=== PATIENT | female | born 1980 | race Hispanic/Latino ===

== ENCOUNTER 2022-04-11 14:28 | Observation (INO) | payer OTHER ==
[2022-04-11 15:10] LABS: SARS-CoV-2 Antigen Rapid Res Negative (Negative)
--- OUTSIDE RECORDS SUMMARY | 2022-04-11 15:56 | XMS REPORT | Continuity of Care Document ---
:1980 Author Organization [facility] t Address [address] [place] [address] Care Team Providers Name Role Phone ROXANNE MACDONALD Primary Care Physician Unavailable BYRON SILVER Attending Clinician Unavailable GC_SWHATBIC_Cone_S Attending Clinician Unavailable MARIANGEL JACKSON Attending Clinician Unavailable MARIANGEL JACKSON Attending Clinician Unavailable Yanet Leo MD Attending Clinician Roxanne Macdonald MD Attending Clinician [phone] YANET LEO Attending Clinician Unavailable Doctor Unassigned, [place] Attending Clinician Unavailable ROXANNE MACDONALD Attending Clinician Unavailable RAUL SEPULVEDA Attending Clinician Unavailable Chasidy King Attending Clinician CHASIDY CHRISTINA Attending Clinician Unavailable Raul Sepulveda MD Attending Clinician 2, [facility] Attending Clinician Unavailable Rosangela Chaudhry A Attending Clinician Peter Shankar OD Attending Clinician PETER SHANKAR Attending Clinician Unavailable CHEL BOWENS Attending Clinician Unavailable Khalida Carmona Attending Clinician Provider, [facility] Attending Clinician Unavailable Pob, [facility] Main Attending Clinician Unavailable Lab, [facility]c Fam Pob I Attending Clinician Unavailable Adela Mueller Attending Clinician Chel Bowens RD Attending Clinician BYRON SILVER Admitting Clinician Unavailable GC_SWHATBIC_Cone_S Admitting Clinician Unavailable YANET LEO Admitting Clinician Unavailable Payers Payer Name Policy Type Policy Number Effective Date Expiration Date Joe forde [facility] [id number] 2016 CHOICE 00:00:00 [facility] [id number] 2021 [place] OF [place] 00:00:00 Problems Condition Condition Condition Status Onset Resolution Last Treating Co mments Source Name Details Category Date Date Treatment Clinician Date Vitamin D Vitamin D Disease Active Uni vers deficiency deficiency 3-17 it y of 00:00: [place] [facility] Abdominal Abdominal Disease Active 2019-04 Overview: Univers wall mass wall mass 0-27 Formattin i ty of of left of left 00:00: g of this [facility] [place] 00 note Medical quadrant quadrant might be Bran ch different from the original. Added automatic ally from request for surgery [id number] Constipati Constipati Disease Active U nivers on, on, 12-20 ity of unspecifie [place]if[place] Medical constipati constipati Br anch on type on type Anemia, Anemia, Disease Active Univers unspecifie unspecifie 8-25 it y of d type d type 00:00: [place] [facility] Diabetes Diabetes Disease Active Unive rs mellitus mellitus 1-23 ity of type II, type II, 00:00: [place] non non 00 Medical insulin insulin Branch dependent dependent Mixed Mixed Disease Active Univers hyperlipid hyperlipid 1-23 it y of emia emia 00:00: [place] [facility] Essential Essential Disease Active Uni vers hypertensi hypertensi 1-23 it y of on on 00:00: [place] [facility] Left sided Left sided Disease Active U nivers abdominal abdominal 1-19 ity of pain pain 00:00: [place] [facility] Fatigue, Fatigue, Disease Active Unive rs unspecifie unspecifie 1-19 it y of d type d type 00:00: [place] [facility] Right Right Disease Active Univers ovarian ovarian 7-18 ity of cyst cyst 00:00: [place] [facility] Menorrhagi Menorrhagi Disease Active U nivers a with a with 7-18 ity of regular regular 00:00: [place] cycle cycle Medical Branch Obesity Obesity Disease Active Univers (BMI (BMI 6-21 ity of 30-39.9) 30-39.9) 00:00: [place] 00 Medical [place] Allergies, Adverse Reactions, Alerts Allergy Allergy Status Severity Reaction(s) Onset Inactive Treating Comm ents Source Name Type Date Date Clinician NO KNOWN Drug Active Univers ALLERGIE Class ity of S [facility] Social History Social Habit Start Date Stop Date Quantity Comments Source History SDOH University o f Alcohol Frequency [place] [facility] History SDOH University o f Alcohol Std [place] [facility] Drinks Branch History SDOH University o f Alcohol Binge [place] [facility] Alcohol intake 2020-10-23 2020-10-23 Current drinker Unive rsity of 00:00:00 00:00:00 of alcohol [place] [facility] (finding) [place] Alcohol Comment 2016-11-12 2016-11-12 Rare Universit y of 00:00:00 00:00:00 [facility] Tobacco use and 2016-08-19 2016-08-19 Smokeless tobacco Un iversity of exposure 00:00:00 00:00:00 non-user [facility] Sex Assigned At [birth year] Universit y of 00:00:00 00:00:00 [facility] Smoking Status Start Date Stop Date Source Never smoked tobacco [facility] Medications Ordered Filled Start Stop Current Ordering Indication Dosage Frequency Signature Comments Components Source Medication Medication Date Date Medication? Clinician (SIG) Name Name blood sugar 2021-04 Yes [id number] Check Univers diagnostic - sugars 2 ity o f strip 00:00: times a [place] 00 day. Brand Medical per Branch insurance. ACCU-CHEK 0 Yes [id number] ONE - Uni vers GUIDE TEST 01-17 TWICE A ity of STRIPS 00:00: DAY [place] strip 00 Medical Branch ACCU-CHEK 0 Yes [id number] ONE - Uni vers GUIDE TEST 01-17 TWICE A ity of STRIPS 00:00: DAY [place] strip 00 Medical Branch ACCU-CHEK 2021-0 2021- No [id number] ONE - Un juancarlos GUIDE TEST 01-17-03 TWICE A ity o f STRIPS 00:00: 00:00 DAY [place] strip 00 :00 Medical Branch ACCU-CHEK 2020-04 Yes USE TO Univer s FASTCLIX 1-19 MEASURE ity of LANCET DRUM 00:00: BLOOD [place] Misc 00 SUGAR TWO Medical TIMES A Branch DAY ACCU-CHEK 2020-04 Yes USE TO Univer s FASTCLIX 1-19 MEASURE ity of LANCET DRUM 00:00: BLOOD [place] Misc 00 SUGAR TWO Medical TIMES A Branch DAY ACCU-CHEK 2020-04 Yes USE TO Univer s FASTCLIX 1-19 MEASURE ity of LANCET DRUM 00:00: BLOOD [place] Misc 00 SUGAR TWO Medical TIMES A Branch DAY ACCU-CHEK 2020-04 Yes USE TO Univer s FASTCLIX 1-19 MEASURE ity of LANCET DRUM 00:00: BLOOD [place] Mis 00 SUGAR TWO Medical TIMES A Branch DAY semaglutide Yes [id number] .25mg inject Univers (OZEMPIC) 9-03 0.25 mg ity of 0.25 mg or 00:00: [place] 0.5 mg(2 00 skin Medical mg/1.5 mL) weekly. Branch PnIj semaglutide Yes [id number] .25mg inject Univers (OZEMPIC) 9-03 0.25 mg ity of 0.25 mg or 00:00: [place] the [place] 0.5 mg(2 00 skin Medical mg/1.5 mL) weekly. Branch PnIj semaglutide Yes [id number] .25mg inject Univers (OZEMPIC) 9-03 0.25 mg ity of 0.25 mg or 00:00: [place] the [place] 0.5 mg(2 00 skin Medical mg/1.5 mL) weekly. Branch PnIj semaglutide Yes [id number] .25mg inject Univers (OZEMPIC) 9-03 0.25 mg ity of 0.25 mg or 00:00: [place] 0.5 mg(2 00 skin Medical mg/1.5 mL) weekly. Branch PnIj fluocinonid Yes [id number] Apply to Univers e 0.05 % 5-25 area(s) 2 ity of cream 00:00: (two) [place] 00 times Medical daily as Branch needed for Rash or Itching. Only use if lesions are raised or itchy. fluocinonid Yes [id number] Apply to Univers e 0.05 % 5-25 area(s) 2 ity of cream 00:00: (two) [place] 00 times Medical daily as Branch needed for Rash or Itching. Only use if lesions are raised or itchy. fluocinonid Yes [id number] Apply to Univers e 0.05 % 5-25 area(s) 2 ity of cream 00:00: (two) [place] 00 times Medical daily as Branch needed for Rash or Itching. Only use if lesions are raised or itchy. fluocinonid Yes [id number] Apply to Univers e 0.05 % 5-25 area(s) 2 ity of cream 00:00: (two) [place] 00 times Medical daily as Branch needed for Rash or Itching. Only use if lesions are raised or itchy. atorvastati Yes [id number] 40mg Take 1 Univers n 40 mg 3-22 tablet by ity of tablet 00:00: mouth at [place] 00 bedtime. Medical Branch atorvastati Yes [id number] 40mg Take 1 Univers n 40 mg 3-22 tablet by ity of tablet 00:00: mouth at [place] 00 bedtime. Medical Branch atorvastati Yes [id number] 40mg Take 1 Univers n 40 mg 3-22 tablet by ity of tablet 00:00: mouth at [place] 00 bedtime. Medical Branch atorvastati Yes [id number] 40mg Take 1 Univers n 40 mg 3-22 tablet by ity of tablet 00:00: mouth at [place] 00 bedtime. Medical Branch cholecalcif Yes [id number] 1000U Take 1 Univers mary ann, 3-18 tablet by ity of vitamin D3, 00:00: mouth [place] (VITAMIN 00 daily. Medical D3) 25 mcg Branch (1,000 unit) tablet metformin Yes [id number] 1000mg Take 2 Univers ER 500 mg 3-18 tablets by ity of 24 hr 00:00: mouth 2 [place] tablet 00 (two) Medical times Branch daily with meals. cholecalcif Yes [id number] 1000U Take 1 Univers mary ann, 3-18 tablet by ity of vitamin D3, 00:00: mouth [place] (VITAMIN 00 daily. Medical D3) 25 mcg Branch (1,000 unit) tablet metformin 0 Yes [id number] 1000mg Take 2 Univers ER 500 mg 3-18 tablets by ity of 24 hr 00:00: mouth 2 [place] tablet 00 (two) Medical times Branch daily with meals. cholecalcif 0 Yes [id number] 1000U Take 1 Univers mary ann, 3-18 tablet by ity of vitamin D3, 00:00: mouth [place] (VITAMIN 00 daily. Medical D3) 25 mcg Branch (1,000 unit) tablet metformin Yes [id number] 1000mg Take 2 Univers ER 500 mg 3-18 tablets by ity of 24 hr 00:00: mouth 2 [place] tablet 00 (two) Medical times Branch daily with meals. cholecalcif 0 Yes [id number] 1000U Take 1 Univers mary ann, 3-18 tablet by ity of vitamin D3, 00:00: mouth [place] (VITAMIN 00 daily. Medical D3) 25 mcg Branch (1,000 unit) tablet metformin Yes [id number] 1000mg Take 2 Univers ER 500 mg 3-18 tablets by ity of 24 hr 00:00: mouth 2 [place] tablet 00 (two) Medical times Branch daily with meals. ACCU-CHEK 0 Yes [id number] USE TO Un juancarlos GUIDE TEST 2-17 MEASURE ity of STRIPS 00:00: BLOOD [place] strip 00 SUGAR TWO Medical TIMES A Branch DAY ACCU-CHEK 2020-0 2022- No [id number] USE TO U nivers GUIDE TEST 2-17 01-17 MEASURE ity o f STRIPS 00:00: 00:00 BLOOD [place] strip 00 :00 SUGAR TWO Medical TIMES A Branch DAY lisinopril 2019-0 Yes [id number] 2.5mg Take 1 Univers 2.5 mg 1-23 tablet by ity of tablet 00:00: mouth [place] 00 daily. Medical Branch Miscellaneo 2020-0 Yes [id number] I10 - [facility] Dispense ity o f Supply Kit 00:00: blood [place] 00 pressure Medical cuff (any Branch brand), take BP at home BID Miscellaneo 2020-0 Yes [id number] E11.9 - Univers [facility] 05-20 Measure ity of Supply Kit 00:00: blood [place] 00 sugar BID. Medical Dispense Branch Accucheck (or alternativ e brand covered by insurance) lancets 28 Yes [id number] E11.9Measu [facility] 05-20 re blood ity o f 00:00: sugar BID [place] [facility] lisinopril 2020-0 Yes [id number] 2.5mg Take 1 Univers 2.5 mg 1-23 tablet by ity of tablet 00:00: mouth [place] 00 daily. Medical Branch Miscellaneo 2020-0 Yes [id number] I10 - U nivAstroloMe [facility] 05-20 Dispense ity o f Supply Kit 00:00: blood [place] 00 pressure Medical cuff (any Branch brand), take BP at home BID Miscellaneo 2019-0 Yes [id number] E11.9 - [facility] 05-20 Measure ity of Supply Kit 00:00: blood [place] 00 sugar BID. Medical Dispense Branch Accucheck (or alternativ e brand covered by insurance) lancets Yes [id number] E11.9Measu [facility] 05-20 re blood ity o f 00:00: sugar BID Medical Branch lisinopril 2020-0 Yes [id number] 2.5mg Take 1 Univers 2.5 mg 1-23 tablet by ity of tablet 00:00: mouth [place] 00 daily. Medical Branch Miscellaneo 2019-0 Yes [id number] I10 - U Augmedix [facility] 05-20 Dispense ity o f Supply Kit 00:00: blood [place] 00 pressure Medical cuff (any Branch brand), take BP at home BID Miscellaneo 2019-0 Yes [id number] E11.9 - [facility] 05-20 Measure ity of Supply Kit 00:00: blood [place] 00 sugar BID. Medical Dispense Branch Accucheck (or alternativ e brand covered by insurance) lancets Yes [id number] E11.9Measu [facility] 05-20 re blood ity o f 00:00: sugar BID Medical Branch lisinopril 2020-0 Yes [id number] 2.5mg Take 1 Univers 2.5 mg 1-23 tablet by ity of tablet 00:00: mouth [place] 00 daily. Medical Branch Miscellaneo 2020-0 Yes [id number] I10 - U Augmedix [facility] 05-20 Dispense ity o f Supply Kit 00:00: blood pressure Medical cuff (any Branch brand), take BP at home BID Miscellaneo 0 Yes [id number] E11.9 - Univers Medical 05-20 Measure ity of Supply Kit 00:00: blood sugar BID. Medical Dispense Branch Accucheck (or alternativ e brand covered by insurance) lancets 28 2019-0 Yes [id number] E11.9Measu Univers gauge Misc 05-20 re blood ity o f 00:00: sugar BID [place] [facility] [place] Immunizations Ordered Filled Immunization Date Status Comments Sourc e Immunization Name Name TDAP 2019-11-[address] [facility] 00:00:00 [facility] TDAP 2019-11-[address] [facility] :00: [facility] TD 2019-11-[address] [facility] 00:00: [facility] 2019-11-[address] [facility] :00:00 [facility] Procedures This patient has no known procedures. Encounters Start End Encounter Admission Attending Care Care Encounter Source Date/Time Date/Time Type Type Clinicians Facility Department ID 2021-02-24 Outpatient NADEEM [facility] [id number] Univers 09:12:42 BYRON [facility] 2021-02-24 [id number] Univers 01:25:59 [facility] 2022-04-02 2022-04-02 Outpatient GC_SWHATBIC PRIV PRIV [id number] [facility] 00:00:00 00:00:00 _[facility]_S [id number] Medica l 2022-03-27 2022-03-27 Outpatient R MARIANGEL JACKSON [facility] B [id number] Univers 13:00:00 13:00:00 MARIANGEL JACKSON [facility] 2022-02-18 2022-02-18 [facility] [id number] Univers 00:00:00 00:00:00 Yanet GOTTI [id number] i [place] [id number] [place] [phone] Ok dical NAL 044 [facility] 2022-01-16 2022-01-16 [facility] [id number] Univers 00:00:00 00:00:00 Yanet GOTTI [id number] i ty of [id number] [phone] [facility] 044 [facility] 2021-12-26 2021-12-26 Telephone [facility] [id number] Univers 00:00:00 00:00:00 Roxanne GOTTI [id number] ity of [id number] [phone] [facility] 231 [facility] 2021-03-15 2021-03-15 [facility] [id number] Univers 00:00:00 00:00:00 Yanet GOTTI [id number] i ty of [id number] [phone] [facility] 044 [facility] 2021-01-04 2021-01-04 Outpatient R [facility] [id number] Univers 10:40:00 10:40:00 YANET [facility] 2021-01-02 2021-01-02 Outpatient R [facility] [id number] Univers 10:40:00 10:40:00 YANET meka [facility] 2021-01-02 2021-01-02 Orders Doctor DRE 1.2.840.114 [id number] Univers 00:00:00 00:00:00 Only Unassigned, MIKY [id number] ity of [place] [facility] [id number] Nikolas as [phone] [address] 2021-01-02 2021-01-02 Telephone [facility] 1.2.840.114 [id number] Univers 00:00:00 00:00:00 Roxanne Gotti [id number] ity of [id number] [place] Profess[place] [phone] [facility] 044 [facility] 2020-12-28 2020-12-28 [facility] 1.2.840.114 [id number] Univers 00:00:00 00:00:00 Roxanne A [place] [id number] ity of [place] [id number] [place] [phone] [facility] 231 [facility] 2020-12-28 2020-12-28 [facility] 1.2.840.114 [id number] Univers 00:00:00 00:00:00 Roxanne A [place] [id number] ity of [place] [id number] [place] [phone] [address] 2020-12-15 2020-12-15 Orders Doctor ERICKSON 1.2.840.114 [id number] Univers 00:00:00 00:00:00 Only Unassigned, MIKY [id number] ity of [place] [facility] [id number] Nikolas as [phone] [address] 2020-12-15 2020-12-15 Orders Doctor DRE 1.2.840.114 [id number] Univers 00:00:00 00:00:00 Only Unassigned, MIKY [id number] ity of [place] [facility] [id number] Nikolas as [phone] [address] 2020-12-14 2020-12-14 Telephone [facility] 1.2.840.114 [id number] Univers 00:00:00 00:00:00 Roxanne A [place] [id number] ity of [place] [id number] [place] [phone] [address] 2020-12-13 2020-12-13 Telephone [facility] 1.2.840.114 [id number] Univers 00:00:00 00:00:00 Roxanne A [place] [id number] ity of [place] [id number] [place] [phone] Ok dical nal 044 [facility] 2020-11-27 2020-11-27 Outpatient R TORRES [facility] [id number] Univers 14:40:00 14:40:00 ROXANNE mcmahan [facility] 2020-11-13 2020-11-13 Outpatient Anthony SEPULVEDA [facility] [id number] Univers 10:30:00 10:30:00 RAUL mcmahan [facility] 2020-11-10 2020-11-10 Outpatient R TORRES [facility] [id number] Univers 10:40:00 10:40:00 ROXANNE [facility] 2020-10-23 2020-10-23 Office [facility] 1.2.840.114 [id number] Univers 14:19:13 15:03:58 Visit Chasidy [place] [id number] [facility] [id number] [phone] Ok dical nal 044 [facility] 2020-10-23 2020-10-23 Outpatient Anthony CHRISTINA [facility] [id number] Univers 13:00:00 13:00:00 CHASIDY pradhan [facility] 2020-10-09 2020-10-09 Outpatient Anthony CHRISTINA [facility] [id number] Univers 09:30:00 09:30:00 CHASIDY pradhan [facility] 2020-09-19 2020-09-19 Office MALI Sepulveda 1.2.840.114 [id number] Univers 10:07:50 11:05:31 Visit Raul Shahid [facility] [id number] ity [facility] [id number] [place] [phone] [address] 2020-09-19 2020-09-19 Outpatient Anthony SEPULVEDA [facility] [id number] Univers 09:45:00 09:45:00 [facility] 2020-09-18 2020-09-18 Office Torres [facility] 1.2.840.114 [id number] Univers 14:26:21 16:10:31 Visit Roxanne Gotti [id number] ity [place] [id number] [phone] Ok dical nal 231 [facility] 2020-09-18 2020-09-18 Outpatient R MACDONALD [facility] [id number] Univers 14:20:00 14:20:00 ROXANNE mcmahan [facility] 2020-07-12 2020-07-12 [place] 2, Adc Lab [facility] 1..840.114 [id number] Univers 13:51:52 14:06:52 Visit Chasidy Christina [id number] ity of [place] [id number] [phone] [facility] 353 [facility] 2020-07-12 2020-07-12 Office [facility] 1..840.114 [id number] Univers 13:23:33 13:49:21 Visit Chasidy [place] [id number] it[place] of [place] [id number] [phone] [facility] 044 [facility] 2020-07-12 2020-07-12 [facility] [id number] Univers 13:00:00 13:00:00 CHASIDY billy o [facility] 2020-06-28 2020-06-28 Outpatient R SANFORD [facility] [id number] Univers 11:00:00 11:00:00 CHASIDY billy o f [facility] 2020-06-26 2020-06-26 Out[facility] [id number] Univers 11:00:00 11:00:00 CHASIDY ity o [facility] 2020-06-08 2020-06-08 [facility] ..840.114 [id number] Univers 00:00:00 00:00:00 Yanet Gotti [id number] i ty [place] [id number] [phone] [facility] 044 [facility] 2020-06-07 2020-06-07 Patient Torres [facility] 1.2.840.114 [id number] Univers 00:00:00 00:00:00 Secure Msg Roxanne [place] [id number] ity of [place] [id number] [phone] [facility] 231 [facility] 2020-06-05 2020-06-05 Telephone Macdonald, [facility] 1.2.840.114 [id number] Univers 00:00:00 00:00:00 Roxanne [place] [id number] it[place] [id number] [phone] [facility] 044 [facility] 2020-04-14 2020-04-14 Outpatient [facility] [id number] Univers 13:00:00 13:00:00 BYRON [facility] 2020-04-14 2020-04-14 Telephone [facility] [id number] Univers 00:00:00 00:00:00 Rosangela Gotti [id number] ity [place] [id number] [phone] [facility] 204 [facility] 2020-03-12 2020-03-12 [facility] 1.2.840.114 [id number] Univers 00:00:00 00:00:00 Management Roxanne Gotti [id number] [place] [id number] [phone] [facility] 231 [facility] 2020-03-03 2020-03-03 Outpatient [facility] [id number] Univers 08:15:00 08:15:00 BYRON [facility] 2020-03-03 2020-03-03 Telephone [facility] [id number] Univers 00:00:00 00:00:00 Rosangela [place] [id number] [place] [id number] [phone] Ok dical nal 204 [facility] 2020-03-03 2020-03-03 Telephone Brie [facility] [id number] Univers 00:00:00 00:00:00 Rosangela Gotti [id number] it[place] [id number] [phone] Ok dical [facility] 204 [facility] 2020-02-25 2020-02-25 Office [facility] 1.2.840.114 [id number] Univers 13:16:18 13:31:18 Visit Peter Valiente MICHELLE [id number] [id number] [place] [phone] [facility] 2020-02-25 2020-02-25 Out[facility] [id number] Univers 13:30:00 13:30:00 PETER mcmahan [facility] 2020-02-24 2020-02-24 [facility] 1.2.840.114 [id number] Univers 10:47:49 12:52:33 Visit Roxanen Gotti [id number] it[place] [id number] [phone] [facility] 231 [facility] 2020-02-24 2020-02-24 Painter Rough 2, Adc Lab [facility] 1.2.840.114 [id number] Univers 11:53:29 12:08:29 Visit Roxanne Macdonald 350.1. 13.10 it[place] [id number] [phone] [facility] 353 [facility] 2020-02-24 2020-02-24 Outpatient R TORRES [facility] [id number] Univers 10:40:00 10:40:00 ROXANNE mcmahan [facility] 2020-02-22 2020-02-22 Prep For [facility] 1.2.840.114 [id number] Univers 00:00:00 00:00:00 Surgery Rosangela [place] [id number] [place] [id number] [phone] Ok dical nal 204 [facility] 2020-02-21 2020-02-21 [facility] [id number] Univers 09:45:00 09:45:00 BYRON itmeka [facility] 2020-02-03 2020-02-03 [facility] [id number] Univers 13:30:00 13:30:00 PETER mcmahan [facility] 2020-01-19 2020-01-19 [facility] [id number] Univers 10:15:00 10:15:00 PETER billmeka [facility] 2020-01-13 2020-01-13 Out[facility] [id number] Univers 11:00:00 11:00:00 CHEL ity [facility] 2020-01-06 2020-01-06 Patient [facility] 1.2.840.114 [id number] Univers 00:00:00 00:00:00 Secure Msg Roxanne Gotti [id number] ity [facility] [id number] [phone] [facility] nal 044 [facility] 2019-12-31 2019-12-31 Outpatient [facility] [id number] Univers 10:30:00 10:30:00 PETER mcmahan [facility] 2019-12-29 2019-12-29 [facility] 1.2.840.114 [id number] Univers 11:00:00 23:59:00 Encounter Roxanne Gotti [id number] ity [facility] [id number] [phone] [facility] [address] 2019-12-29 2019-12-29 [facility] [id number] Univers 00:00:00 00:00:00 ROXANNE mcmahan of [facility] 2019-12-29 2019-12-29 Orders Doctor DRE 1.2.840.114 [id number] Univers 00:00:00 00:00:00 Only Unassigned, MIKY 350.1.13.10 ity of [place] [facility] [id number] Nikolas as [phone] [facility] [address] 2019-12-21 2019-12-21 Office [facility] 1.2.840.114 [id number] Univers 15:41:48 16:25:53 Visit Yanet Gotti 350.1.13.10 i [place].2.[place] [phone] Ok dical nal 044 [facility] 2019-12-21 2019-12-21 Outpatient R [facility] [id number] Univers 15:20:00 15:20:00 YANET itmeka [facility] 2019-12-13 2019-12-13 [facility] 1.2.840.114 [id number] Univers 12:15:00 23:59:00 Encounter Khalida Gotti 350.1.13.10 ity [id number] [phone] [facility] [address] 2019-12-13 2019-12-13 Urgent Provider, [facility] 1.2.840.114 [id number] Univers 11:24:53 16:59:39 Care Khalida Collins 350.1.13.10 ity of [place] 4.2.7.2.686 Nikolas as Professio [phone] Ok dical nal [address] Office Building One 2019-12-13 2019-12-13 Painter Rough Ravin, Gideon [facility] Main [facility] 1.2.8 40.114 [id number] Univers 12:12:13 12:27:13 Visit Khalida Collins 350.1.13.10 it[id number] [phone] Ok dical nal 353 [facility] 2019-12-13 2019-12-13 Outpatient R [facility] [id number] Univers 11:20:00 11:20:00 ity of [facility] 2019-12-13 2019-12-13 [facility] 1.2.840.114 [id number] Univers 00:00:00 00:00:00 Management Roxanne Gotti [id number] [place].2.[place] [phone] [facility] 231 [facility] 2019-12-12 2019-12-12 [facility] 1.2.840.114 [id number] Univers 00:00:00 00:00:00 Roxanne Ramiro DickinsonAnadarko 350.1.13.10 ity [place]2.7.2.[place] [phone] [facility] 231 [facility] 2019-12-06 2019-12-06 [facility] 1.2.840.114 [id number] Univers 09:30:00 23:59:00 Encounter Roxanne Gotti 350.1.13.10 ity [place] 4[place]2.7.2.686 [place] [phone] [address] 2019-12-06 2019-12-06 Painter Rough Gideon Alicia Lab Main [facility] 1.2.8 40.114 [id number] Univers 11:08:32 11:23:32 Visit Roxanne Macdonald 350.1. 13.10 ity [place] 4[place]2.7.2.[place] [phone] [facility] 353 [facility] 2019-12-06 2019-12-06 Outpatient R TORRES [facility] [id number] Univers 00:00:00 00:00:00 ROXANNE mcmahan [facility] 2019-11-24 2019-11-24 Outpatient R NGUYEN [facility] [id number] Univers 08:30:00 08:30:00 YANET mcmahan [facility] 2019-11-23 2019-11-23 [facility] 1.2.840.114 [id number] Univers 09:35:47 10:57:00 Visit Roxanne Gotti 350.1.13.10 it[place]2.7.2.[place] [phone] [facility] 231 [facility] 2019-11-23 2019-11-23 Out[facility] [id number] Univers 10:20:00 10:20:00 ROXANNE ity [facility] 2019-11-09 2019-11-09 Orders Doctor DRE 1.2.840.114 [id number] Univers 00:00:00 00:00:00 Only Unassigned, MIKY 350.1.13.10 ity of [place] [facility] 4.2.7.2.686 Nikolas as [phone] [address] 2019-10-27 2019-10-27 Telephone [facility] 1.2.840.114 [id number] Univers 00:00:00 00:00:00 Yanet Gotti 350.1.13.10 i ty [place]7.2.[place] [phone] [facility] 044 [facility] 2019-10-25 2019-10-25 Laboratory Lab, Adc Fam Pob I [facility] 1.2. 840.114 [id number] Univers 07:30:57 07:50:57 Only Green, GrantAdler 350.1.13.10 ity of [place] 4.2.7.2.686 Nikolas as Professio [phone] [facility] 044 [facility] Building One 2019-10-25 2019-10-25 Outpatient R [facility] [id number] Univers 07:20:00 07:20:00 ity of [facility] 2019-10-21 2019-10-21 Orders Doctor ERICKSON 1.2.840.114 [id number] Univers 00:00:00 00:00:00 Only Unassigned, MIKY 350.1.13.10 ity of [place] [facility] 4.2.7.2.686 Nikolas as [phone] [address] 2019-08-23 2019-08-23 [facility] [id number] Univers 10:40:00 10:40:00 ROXANNE ity [facility] 2019-08-23 2019-08-23 [facility] 1.2.840.114 [id number] Univers 08:07:13 08:27:13 ne Visit Roxanne Gotti 350.1.13.10 ity [place] 4[place]2.7.2.[place] [phone] [facility] 231 [facility] 2019-06-24 2019-06-24 Outpatient R [facility] [id number] Univers 15:00:00 15:00:00 [facility] 2019-06-24 2019-06-24 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 [facility] 1.2.021.469 [id number] [facility] 11:28:45 12:09:47 Visit Chel Dickinsonton 350.1.13.10 i ty [place] 4[place]2.7.2.[place] [phone] [facility] 220 [facility] 2019-06-24 2019-06-24 [facility] [id number] Univers 11:00:00 11:00:00 [facility] 2019-06-03 2019-06-03 Telephone [facility] 12.840.114 [id number] Univers 00:00:00 00:00:00 Yanet Gotti 350.1.13.10 i ty [place] 4[place]2.7.2.[place] [phone] [facility] 044 [facility] 2019-05-31 2019-05-31 Telephone [facility] 1.2.840.114 [id number] Univers 00:00:00 00:00:00 Yanet Gotti 350.1.13.10 i ty [place] 4[place]2.7.2.[place] [phone] [facility] 044 [facility] 2019-05-31 2019-05-31 Telephone [facility] 1.2.840.114 [id number] Univers 00:00:00 00:00:00 Yanet Gotti 350.1.13.10 i ty [place] 4[place]2.7.2.[place] [phone] Ok dical nal 044 [facility] 2019-05-26 2019-05-26 Telephone [facility] 1.2.840.114 [id number] Univers 00:00:00 00:00:00 Yanet Gotti 350.1.13.10 i ty [place] 4[place]2.7.2.[place] [phone] [facility] 044 [facility] 2019-05-26 2019-05-26 Telephone [facility] 1.2.840.114 [id number] Univers 00:00:00 00:00:00 Yanet Gotti 350.1.13.10 i ty [place] 4[place]2.7.2.[place] [phone] [facility] 044 [facility] 2019-05-20 2019-05-20 Office [facility] 1.2.840.114 [id number] [facility] 09:54:14 11:22:19 Visit Yanet [place]otti 350.1.13.10 i ty [place] 4[place]2.7.2.[place] [phone] Ok dic[address] 2019-05-12 2019-05-12 [id number] Univers 10:53:42 23:59:00 YANET mcmahan [facility] 2019-05-12 2019-05-12 [facility] 1.2.840.114 [id number] Univers 10:53:00 23:59:00 Encounter Yanet Gotti 350.1.13.10 ity [place] 4[place]2.7.2.686 [place] [phone] [facility] [address] 2019-05-12 2019-05-12 Painter Rough Ravin, Gideon [facility] Main [facility] 1.2.8 40.114 [id number] Univers 10:26:13 10:41:13 Visit Yanet Leo 350.1.13.10 ity [place] 4.2.7.2.686 [place] [phone] Ok dical nal 353 [facility] 2019-05-12 2019-05-12 Office KINGSTON Leo 1.2.840.114 [id number] Univers 08:44:22 10:15:29 Visit Yanet Gotti 350.1.13.10 i ty [place] 4[place]2.7.2.686 [place] [phone] Ok dical nal [address] 2019-05-12 2019-05-12 Orders Doctor DRE 1.2.840.114 [id number] Univers 00:00:00 00:00:00 Only Unassigned, MIKY 350.1.13.10 ity of [place] [facility] 4.2.7.2.686 Nikolas as [phone] [facility] syeda [address] Branch Results This patient has no known results.
--- NOTE | 2022-04-11 16:27 | P.HP ---
Certification for Inpatient Patient admitted to: Observation With expected LOS: <2 Midnights Patient will require the following post-hospital care: None Practitioner: I am a practitioner with admitting privileges, knowledge of patient current condition, hospital course, and medical plan of care. Services: Services provided to patient in accordance with Admission requirements found in Title 42 Section 412.3 of the Code of Federal Regulations Patient History Date of Service: 04/11/22 Primary Care Provider: Yordy Reason for admission: anemia secondary to blood loss History of Present Illness: Patient is an office patient of Mrs. Scales. She has a history of dm2 and chronic menorhagia. She has been having bleeding and came into for an office visit yesterday. Blood work was drawn and the patient had an HB of 6.5 and an a1c of 5.6 As this was in the range for heart attacks and strokes a stat transfusion was prudent. Patient was called and directed to the hospital for type and screen and transfusion. Review of Systems 10-point ROS is otherwise unremarkable General: Malaise Genitourinary: Other (menorhagia ) Physical Examination - Physical Exam General: Alert, In no apparent distress HEENT: Atraumatic, PERRLA, Mucous membr. moist/pink, Other (palor ), EOMI, Sclerae nonicteric Neck: Supple, 2+ carotid pulse no bruit, No LAD, Without JVD or thyroid abnormality Respiratory: Clear to auscultation bilaterally, Normal air movement Cardiovascular: Regular rate/rhythm, Normal S1 S2 Gastrointestinal: Normal bowel sounds, No tenderness Musculoskeletal: No tenderness Integumentary: No rashes Neurological: Normal gait, Normal speech, Normal strength at 5/5 x4 extr, Normal tone, Normal affect Lymphatics: No axilla or inguinal lymphadenopathy Assessment and Plan - Problems (Diagnosis) (1) Iron deficiency anemia due to chronic blood loss Current Visit: Yes Status: Acute Plan: Will type, screen and transfuse 2 units prbc. Will check a post transfusion. If she is above 8 we can discharge her home. She is on oral iron. However she most likely needs iron infusion. 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 She will changing her insurance soon. Will see if we can get her someone closer to home Qualifiers: Menorrhagia type: with irregular cycle Qualified Code(s): N92.1 - Excessive and frequent menstruation with irregular cycle (3) Type 2 diabetes mellitus without complications Current Visit: Yes Status: Chronic Plan: She is well controlled on metformin and ozempic. will put her on an ada diet and restart her metformin. No need for a sliding scale. Qualifiers: Diabetes mellitus computer terminal operator insulin use: without intermediate use Qualified Code(s): E11.9 - Type 2 diabetes mellitus without complications Discharge Plan: Home Plan to discharge in: 24 Hours - Advance Directives Does patient have a Living Will: No Does patient have a Durable POA for Healthcare: No - Code Status/Comfort Care Code Status Assessed: Yes Code Status: Full Code Physician Review: Patient Assessed, Agree with Above Assessment and Plan Critical Care: No Time Spent Managing Pts Care (In Minutes): 70
[2022-04-11 16:59] VITALS: BMI 34.7
[2022-04-11 17:11] LABS: Hematocrit 20.4 % (36.0-45.0); MCV 76.3 fL (80-100); MPV 8.2 fL (7.6-11.3); RBC Red Blood Cell Count 2.67 M/uL (3.86-4.86)
[2022-04-11] MEDS ORDERED: METFORMIN ER 500 MG TAB PO SCH (17:30)
[2022-04-11] MEDS ORDERED: NA CHLORIDE 0.9% 500 ML ONE ×2 (18:03→22:45)
[2022-04-11 21:23] VITALS: O2SAT 100
[2022-04-12 03:31] LABS: Hematocrit 28.3 % (36.0-45.0)
--- NOTE | 2022-04-12 07:34 | P.DS ---
Admission Date: 04/11/22 Discharge Date: 04/12/22 Primary Care Provider: Yordy Disposition: ROUTINE DISCHARGE Discharge Condition: GOOD Reason for Admission: anemia secondary to blood loss - Problems (1) Iron deficiency anemia due to chronic blood loss Current Visit: Yes Status: Acute (2) Menorrhagia Current Visit: Yes Status: Chronic Qualifiers: Menorrhagia type: with irregular cycle Qualified Code(s): N92.1 - Excessive and frequent menstruation with irregular cycle (3) Type 2 diabetes mellitus without complications Current Visit: Yes Status: Chronic Qualifiers: Diabetes mellitus snf insulin use: without assistant store manager operations use Qualified Code(s): E11.9 - Type 2 diabetes mellitus without complications Brief History of Present Illness: Patient is an office patient of Mrs. Scales. She has a history of dm2 and chronic menorhagia. She has been having bleeding and came into for an office visit yesterday. Blood work was drawn and the patient had an HB of 6.5 and an a1c of 5.6 As this was in the range for heart attacks and strokes a stat transfusion was prudent. Patient was called and directed to the hospital for type and screen and transfusion. Hospital Course: Patient has responded to 2 units. Her hb this morning is 9.1 Will discharge. She is on oral iron. Will need to set up iron transfusion. Her insurance will change Apr 28. Hopefully we can find her a local OBGyn. She can follow up with Mrs Scales in a week. Vital Signs/Physical Exam: Temp Pulse Resp BP Pulse Ox 98.1 F 81 16 114/62 98 04/12/22 06:00 04/12/22 06:00 04/12/22 06:00 04/12/22 06:00 04/12/22 06:00 General: Alert, In no apparent distress HEENT: Atraumatic, PERRLA, EOMI Neck: Supple, JVD not distended Respiratory: Clear to auscultation bilaterally, Normal air movement Cardiovascular: Regular rate/rhythm, Normal S1 S2 Gastrointestinal: Normal bowel sounds, No tenderness Musculoskeletal: No tenderness Integumentary: No rashes Neurological: Normal speech, Normal tone, Normal affect Lymphatics: No axilla or inguinal lymphadenopathy Laboratory Data at Discharge: WBC 5.60 K/uL (4.3-10.9) 04/11/22 16:48 Hgb 9.1 g/dL (12.0-15.0) L D 04/12/22 03:20 Hct 28.3 % (36.0-45.0) L 04/12/22 03:20 Plt Count 250 K/uL (152-406) 04/11/22 16:48 Home Medications: Metformin HCl [Metformin HCl ER] 500 mg PO BEDTIME 04/11/22 Semaglutide [Ozempic] 1 mg SQ Q7D 04/11/22 Diet: Regular Activity: Ad cassie Followup: Deedee Scales FNP BC [ALLIED HEALTH PROFESSIONAL] - Physician Review: Patient Assessed, Agree with Above Assessment and Plan Time spent managing pt's care (in minutes): 30
[2022-04-12 08:12] VITALS: BP 117/63; TEMP 98.3
== END 2022-04-12 08:20 | disposition home or self-care (01) ==
LOC: 2ND-WC 15:50
PROVIDERS: ADMIT Internal Medicine; ATTEND Internal Medicine
PROC: 30233N1 Transfusion of Nonautologous Red Blood Cells into Peripheral Vein, Percutaneous Approach (ICD-10-PCS; principal; 2022-04-11)
DX: D50.0 Iron deficiency anemia secondary to blood loss (chronic) (principal); N92.1 Excessive and frequent menstruation with irregular cycle; E11.9 Type 2 diabetes mellitus without complications; Z20.822 Contact with and (suspected) exposure to COVID-19
CPT/HCPCS: 36415; 86900; 86850; 86901; 85018; 85014; 85027; 87811; 36430; P9016 ×2; J7040 ×2